=== PATIENT | male | born 1970 | race Caucasian/White ===

== ENCOUNTER 2016-08-18 19:28 | Emergency (ER) | payer OTHER ==
[~2016-08-18] VITALS: Ht 168.9 cm; Wt 68.2 kg
[2016-08-18 19:32] VITALS: Ht 168.9 cm; Wt 68.2 kg
[2016-08-18] MEDS ORDERED: ONDANSETRON 4 MG INJ IV STA (19:41)
[2016-08-18] MEDS ORDERED: SOD CHLORIDE 0.9% 1,000 ML IV STA ×2 (19:41→19:47)
[2016-08-18] MEDS ORDERED: FAMOTIDINE 20 MG TAB PO STA (19:47)
[2016-08-18] MEDS ORDERED: LIDOCAINE/MYLANTA 40 ML BTL PO STA (19:47)
[2016-08-18 20:41] LABS: BASOPHILS % 0.4 % (0.0-2.0); CONDITION 1; EOSINOPHILS # 0.4 10^3/ul (0.0-0.5); HEMATOCRIT 46.3 % (42.0-52.0); HEMOGLOBIN 15.8 g/dl (14.0-18.0); LYMPHOCYTES # 1.4 10^3/ul (0.8-2.9); LYMPHOCYTES % 28.1 % (15.0-51.0); MEAN CORPUSCULAR HEMOGLOBIN 31.4 pg (29.0-33.0); MEAN CORPUSCULAR HGB CONC 34.1 g/dl (32.0-37.0); MEAN CORPUSCULAR VOLUME 92.1 fl (82.0-101.0); MEAN PLATELET VOLUME 9.3 fl (7.4-10.4); MONOCYTE # 0.2 10^3/ul (0.3-0.9); MONOCYTES % 3.9 % (0.0-11.0); NEUTROPHIL # 3.1 10^3/ul (1.6-7.5); NEUTROPHILS % 59.6 % (39.0-77.0); PLATELET COUNT 299 10^3/UL (140-440); RED BLOOD COUNT 5.03 10^6/ul (4.70-6.10); RED CELL DISTRIBUTION WIDTH 12.2 % (11.5-14.5); UNCORRECTED WBC 5.1 10^3/ul (4.8-10.8); WHITE BLOOD COUNT 5.1 10^3/ul (4.8-10.8)
[2016-08-18 20:54] LABS: ALBUMIN 4.5 g/dl (3.3-4.9)
[2016-08-18 20:55] LABS: POTASSIUM 3.9 mmol/L (3.5-5.1)
[2016-08-18 20:57] LABS: BILIRUBIN,INDIRECT 0.5 mg/dl (0-1.1); BILIRUBIN,TOTAL 0.5 mg/dl (0.2-1.3); CREATININE 0.65 mg/dl (0.61-1.24)
[2016-08-18 20:58] LABS: ALBUMIN/GLOBULIN RATIO 1.12; CALCIUM 8.9 mg/dl (8.4-10.2); TOTAL PROTEIN 8.5 g/dl (6.1-8.1)
--- NOTE | 2016-08-18 21:03 | RADRPT ---
PROCEDURE: CT abdomen and pelvis without intravenous contrast. CLINICAL INDICATION: Pain. TECHNIQUE: CT of the abdomen/pelvis was performed utilizing axial images with reconstructions in s agittal and coronal planes. The administered radiation dose is CTDI 10.4 mGy, DLP 586 mGy-cm. COMPARISON: No pertinent prior examinations were submitted for comparison. FINDINGS: Visualized Chest: The visualized lung bases are clear. Abdomen: The spleen, pancreas, gallbladder,and adrenal glands are unremarkable. The liver is markedly, dif fusely decreased in attenuation, compatible with hepatic steatosis. The kidneys are without hydronephrosis. A punctate nonobstructive calculus is noted within the inte rpolar left kidney. There is no evidence of bowel obstruction. The appendix is normal. No intra-abdominal free air is seen. Some diverticula are noted along the sigmoid colon without evidence of diverticulitis. A few s cattered calcifications are noted in the aorta. There is no evidence of intra-abdominal adenopathy or free fluid. Pelvis: There is no evidence of pelvic adenopathy of free fluid. The prostate and bladder are unremarkable. There is a small to moderate, fat-containing right inguinal hernia. Osseous structures: Unremarkable. IMPRESSION: No acute findings. Hepatic steatosis. Punctate nonobstructive left intrarenal calculus. Mild sigmoid colonic diverticulosis. Small to moderate fat-containing right inguinal hernia. RPTAT: HIKT .Ruiz Carver MD, Date Time Electronically viewed and signed by .Ruiz Carver MD, on 08/18/2016 21:02 .T/
--- NOTE | 2016-08-18 21:30 | ERD ---
ER Documentation Chief Complaint Date/Time DATE: 08/18/16 TIME: 21:27 Chief Complaint c/o abd pain, in PD custody HPI 46-year-old male with a history of hypertension presenting with abdominal pain. Patient was brought in by police after he was arrested for an allegedly DUI. Patient states that he has had intermittent epigastric pain for the past 2 months. Nothing seems to make it better or worse. He describes the pain as burning. Nonradiating. 10 out of 10. No associated nausea, vomiting, diarrhea , constipation, fever or chills. He is not currently taking anything for the pain. He denies drinking or smoking. He denies any drug use. Per police, they found cocaine in his pockets. ROS All systems reviewed and are negative except as per history of present illness. Allergies Allergies: Coded Allergies: No Known Allergy (Unverified , 08/18/16) PMhx/Soc Hx Cardiac Disorders: Yes (Hypertension) Hx Alcohol Use: No Hx Substance Use: No Hx Tobacco Use: No FmHx Family History: No diabetes Physical Exam Vitals Vital Signs Date Time Temp Pulse Resp B/P Pulse Ox O2 Delivery O2 Flow Rate FiO2 08/18/16 19:32 99.1 104 18 171/109 100 Physical Exam Const: Mild distress secondary to pain, nontoxic Head: Atraumatic Eyes: Normal Conjunctiva ENT: Normal External Ears, Nose and Mouth. Neck: Full range of motion. No meningismus. Resp: Clear to auscultation bilaterally Cardio: Regular rate and rhythm, no murmurs Abd: Soft, diffuse mild tenderness to palpation, no rebound or guarding, no masses, non distended. Normal bowel sounds Skin: No petechiae or rashes Back: No midline or flank tenderness Ext: No cyanosis, or edema Neur: Awake and alert Psych: Normal Mood and Affect Result Diagram: 08/18/16201408/18/162014 Results 24 hrs Laboratory Tests Test 08/18/16 20:15 Alanine Aminotransferase (ALT/SGPT) 38IU/L Albumin 4.5g/dl Albumin/Globulin Ratio 1.12 Alkaline Phosphatase 93IU/L Anion Gap 20 Aspartate Amino Transf (AST/SGOT) 48IU/L Basophils # 0.010^3/ul Basophils % 0.4% Blood Urea Nitrogen 10mg/dl Calcium Level 8.9mg/dl Carbon Dioxide Level 24mmol/L Chloride Level 101mmol/L Creatinine 0.65mg/dl Direct Bilirubin 0.00mg/dl Eosinophils # 0.410^3/ul Eosinophils % 8.0% Globulin 4.00g/dl Glucose Level 81mg/dl Hematocrit 46.3% Hemoglobin 15.8g/dl Indirect Bilirubin 0.5mg/dl Lipase 130U/L Lymphocytes # 1.410^3/ul Lymphocytes % 28.1% Mean Corpuscular Hemoglobin 31.4pg Mean Corpuscular Hemoglobin Concent 34.1g/dl Mean Corpuscular Volume 92.1fl Mean Platelet Volume 9.3fl Monocytes # 0.210^3/ul Monocytes % 3.9% Neutrophils # 3.110^3/ul Neutrophils % 59.6% Nucleated Red Blood Cells # 0.010^3/ul Nucleated Red Blood Cells % 0.0/100WBC Platelet Count 17890^3/UL Potassium Level 3.9mmol/L Red Blood Count 5.0310^6/ul Red Cell Distribution Width 12.2% Sodium Level 141mmol/L Total Bilirubin 0.5mg/dl Total Protein 8.5g/dl White Blood Count 5.110^3/ul Current Medications Medications (Trade) Dose Ordered Sig/Jeffery Route PRN Reason Start Time Stop Time Status Last Admin Dose Admin Sodium Chloride (NS) 1,000 ml @ 1,000 mls/hr Q1H STAT IV 08/18/16 19:41 08/18/16 20:40 DC 08/18/16 20:13 Ondansetron HCl 4 mg 4 mg ONCE STAT IV 08/18/16 19:41 08/18/16 19:42 DC 08/18/16 20:13 Sodium Chloride (NS) 1,000 ml @ 1,000 mls/hr Q1H STAT IV 08/18/16 19:47 08/18/16 20:46 DC 08/18/16 20:13 Famotidine (Pepcid) 20 mg ONCE STAT PO 08/18/16 19:47 08/18/16 19:48 DC 08/18/16 20:12 Miscellaneous Medication (Gi Cocktail (2)) 40 ml ONCE STAT PO 08/18/16 19:47 08/18/16 19:48 DC 08/18/16 20:12 Procedures/MDM Patient is presenting with acute on chronic epigastric pain. His vitals are stable and he is afebrile. I have a low suspicion for acute surgical abdomen. Differential includes but is not limited to pancreatitis, hepatitis, colitis, gastritis. His labs were all within normal limits and his CT abdomen and pelvis did not show any acute abnormalities. The patient was given IV fluids and a GI cocktail. The patient remained hemodynamically stable. I believe the patient is stable for continued outpatient follow-up. He is medically clear for booking. He was given information for the [facility] so he can follow- up. Departure Diagnosis: Primary Impression: Abdominal pain Abdominal location: epigastric Qualified Code: R10.13 - Epigastric pain Condition: Stable Patient Instructions: Abdominal Pain Referrals: [facility] YOU HAVE RECEIVED A MEDICAL SCREENING EXAM AND THE RESULTS INDICATE THAT YOU DO NOT HAVE A CONDITION THAT REQUIRES URGENT TREATMENT IN THE EMERGENCY DEPARTMENT. FURTHER EVALUATION AND TREATMENT OF YOUR CONDITION CAN WAIT UNTIL YOU ARE SEEN IN YOUR DOCTORS OFFICE WITHIN THE NEXT 1-2 DAYS. IT IS YOUR RESPONSIBILITY TO MAKE AN APPOINTMENT FOR FOLOW-UP CARE. IF YOU HAVE A PRIMARY DOCTOR --you should call your primary doctor and schedule and appointment IF YOU DO NOT HAVE A PRIMARY DOCTOR YOU CAN CALL OUR PHYSICIAN REFERRAL HOTLINE AT . IF YOU CAN NOT AFFORD TO SEE A PHYSICIAN YOU CAN CHOSE FROM THE FOLLOWING [facility] INSTITUTIONS: [facility] [address] [place] [address] [facility] [address] [place] [address] [facility] [address] [place] [address] Additional Instructions: Patient is medically cleared for booking. PHAN WELLS MD Aug 18, 2016 21:30
[2016-08-18 21:35] VITALS: BP 135/78; PULSE 85; RESP 17
== END 2016-08-18 21:37 | disposition home or self-care (01) ==
LOC: E/R 19:28
DX: R10.13 Epigastric pain (principal); I10 Essential (primary) hypertension
CPT/HCPCS: 74176; 80053; 83690; 85025; J2405; J7030; 36415; 96374